=== PATIENT | male | born 1980 | race Caucasian/White ===

== ENCOUNTER → 2020-05-10 08:49 | Outpatient (BNVA) | payer BC, SELFPAY | PROVIDERS: Family Provider Family Medicine; PCP Nurse Practitioner; Visit Provider Nurse Practitioner Family | DX: I10 Essential (primary) hypertension (principal) | CPT/HCPCS: 80053; 80061; 84443; 85025 ==

== ENCOUNTER → 2023-02-21 09:17 | Outpatient (BNVA) | payer BC, SELFPAY | PROVIDERS: Family Provider Family Medicine; PCP Nurse Practitioner; Visit Provider Nurse Practitioner Family | DX: I10 Essential (primary) hypertension (principal); Z12.5 Encounter for screening for malignant neoplasm of prostate | CPT/HCPCS: 80053; 80061; 85025; G0103 ==

== ENCOUNTER 2023-07-09 05:39 | Day surgery (SDC) | payer BC, SELFPAY ==
[2023-07-09 06:07] VITALS: BP 125/89; PULSE 79; RESP 18; TEMP 36.6; O2SAT 99
--- NOTE | 2023-07-09 06:16 | ANES.PREANE2 ---
Pre-Anesthetic Assessment Height/Weight: Height 1.85 m Weight 131.542 kg Temp Pulse Resp BP Pulse Ox O2 Del Method 97.9 F 79 18 125/89 99 Room Air 07/09/23 06:07 07/09/23 06:07 07/09/23 06:07 07/09/23 06:07 07/09/23 06:07 07/09/23 06:07 Preop Diagnosis: Screening Operation Date: 07/09/23 07:00 Proposed Procedures p Colonoscopy 48336,Z12.11(Not Applicable) - Joseph Bass DO Familial anesthetic complications: none Was Beta Gaby taken within 24 hours: N/A Was Clonidine taken within 24 hours: N/A Last intake: Intake Last Liquid Date 07/08/23 Last Liquid Time 22:00 Last Solid Date 07/07/23 Last Solid Time 17:00 Social Alcohol (Social) and No tobacco Exam alert, oriented x 3, clear to auscultation bilaterally and regular rate & rhythm Airway Submandibular: within normal limits Cervical ROM: within normal limits Mallampati: Class II Dentition: full History/ROS No significant history except as noted and No significant complaints Pulmonary Sleep Apnea CV/HEM Hypertension None reported Hepatic None reported GI None reported Metabolic Morbid Ob[place] [facility] [place] Osteoarthritis/DJD Neuropsych None reported Anesthetic Plan ASA status: 1 Anesthesia: Anesthesia Evaluation, General and MAC Medications/Allergies Home Medications Medication Instructions Recorded Confirmed Last Taken Type lisinopril 20 mg tablet 20 mg PO DAILY 90 days #90 tabs 02/21/23 07/04/23 07/08/23 Rx Allergies Allergy/AdvReac Type Severity Reaction Status Date / Time No Known Allergies Allergy Unverified 05/08/23 09:45 [facility] Anesthesia Surgical History History of carpal tunnel surgery Social History Smoking and tobacco status: former smoker Second hand smoke exposure: No Smoking risk assessment/counseling performed?: No Alcohol intake: never Desire information about alcohol rehabilitation?: No Counseling given: No Substance/Drug Use: never Desire information about substance/drug rehabilitation?: No Counseling given: No Adopted: No Caregiver/support person: No Lives independently: Yes Household members: spouse Housing: House Marital status: Number of children: 3 Highest education level completed: Some College, No Degree service: No Current occupational status: employed Data Anesthesia Cardiac Studies: No Data to Display
[2023-07-09] MEDS: sodium chloride 0.9% 1,000 ML 30 ML IV (06:19)
--- NOTE | 2023-07-09 06:56 | PM.HP ---
Providers/Chief Complaint Primary Care Provider: PEDRO Steve Chief Complaint: Z12.11 History of Present Illness Toi Harley is a 43 year old male here for his first screening colonoscopy. His grandmother had colon cancer. He denies any abdominal pain, nausea, emesis, diarrhea, constipation, hematochezia and/or melena Medications/Allergies Home Medications Medication Instructions Recorded Confirmed Last Taken Type lisinopril 20 mg tablet 20 mg PO DAILY 90 days #90 tabs 02/21/23 07/04/23 07/08/23 Rx Allergies Allergy/AdvReac Type Severity Reaction Status Date / Time No Known Allergies Allergy Unverified 05/08/23 09:45 PFSH Acute PFSH: Surgical History History of carpal tunnel surgery Social History Smoking and tobacco status: former smoker Second hand smoke exposure: No Smoking risk assessment/counseling performed?: No Alcohol intake: never Desire information about alcohol rehabilitation?: No Counseling given: No Substance/Drug Use: never Desire information about substance/drug rehabilitation?: No Counseling given: No Adopted: No Caregiver/support person: No Lives independently: Yes Household members: spouse Housing: House Marital status: Number of children: 3 Highest education level completed: Some College, No Degree service: No Current occupational status: employed Vitals/I&O/Wt Last Vital Signs Temp 97.9 F 07/09/23 06:07 Pulse 79 07/09/23 06:07 Resp 18 07/09/23 06:07 BP 125/89 07/09/23 06:07 Pulse Ox 99 07/09/23 06:07 O2 Del Method Room Air 07/09/23 06:07 A&P Assessment and plan (1) Colon cancer screening: Plan Screening colonoscopy The risks and benefits of the procedure, including bleeding, infection, intestinal perforation requiring surgery, missed lesion were explained to the patient. The patient is understanding of the risks and wishes to proceed. Attestations Medical Necessity Statement*: Home Coding Level of Care Code Acute Code for Chg Fwd Diagnoses Colon cancer screening Z12.11
[2023-07-09 07:20] VITALS: BP 111/81; PULSE 83; RESP 16; TEMP 36.3; O2SAT 95
[2023-07-09 07:32] VITALS: BP 123/83; PULSE 68; RESP 16; O2SAT 100
[2023-07-09 07:46] VITALS: BP 127/88; PULSE 69; RESP 16; O2SAT 96
--- NOTE | 2023-07-09 07:50 | ANE.PACU2 ---
Inpatient post-anesthesia follow up: Airway intact: Yes Vital signs: Temperature 97.3 F Pulse Rate 69 Respiratory Rate 16 Blood Pressure 127/88 Pulse Oximetry 96 Oxygen Delivery Me thod Room Air Oxygen Flow Rate 4 Fraction of Inspir ed Oxygen Hydration adequate: Yes Nausea and vomiting: No Pain level: 1 Mental status: Baseline
== END 2023-07-09 07:58 | disposition home or self-care (01) ==
PROVIDERS: PCP Nurse Practitioner; Visit Provider Surgery
PROC: 0DJD8ZZ Inspection of Lower Intestinal Tract, Via Natural or Artificial Opening Endoscopic (ICD-10-PCS; CPT 45378; principal; 2023-07-09 07:00)
DX: Z12.11 Encounter for screening for malignant neoplasm of colon (principal); Z80.0 Family history of malignant neoplasm of digestive organs; K63.5 Polyp of colon; K57.30 Diverticulosis of large intestine without perforation or abscess without bleeding; G47.30 Sleep apnea, unspecified; I10 Essential (primary) hypertension; E66.01 Morbid (severe) obesity due to excess calories; Z68.38 Body mass index [BMI] 38.0-38.9, adult; Z87.891 Personal history of nicotine dependence
CPT/HCPCS: 45385; 88305; J2704; J3490; J7030

== ENCOUNTER → 2024-11-11 10:39 | Outpatient (BNVA) | payer BC, SELFPAY | PROVIDERS: PCP Nurse Practitioner; Visit Provider Nurse Practitioner | DX: Z12.5 Encounter for screening for malignant neoplasm of prostate (principal); I10 Essential (primary) hypertension | CPT/HCPCS: 80053; 80061; G0103 ==

== ENCOUNTER → 2025-06-03 08:11 | Outpatient (BNVA) | payer BC, SELFPAY | PROVIDERS: PCP Nurse Practitioner; Visit Provider Nurse Practitioner | DX: I10 Essential (primary) hypertension (principal) | CPT/HCPCS: 80053; 80061; 86705; 86706; 86709; 86803; 87340 ==

== ENCOUNTER 2025-06-10 07:34 | Outpatient (CLI) | payer BC, SELFPAY ==
--- NOTE | 2025-06-10 07:45 | US_ITS ---
WS: [id number] ABDOMINAL ULTRASOUND LIMITED REASON FOR VISIT: R74.01 - Elevation of levels of liver transaminase levels TECHNIQUE: Grayscale and Doppler ultrasound examination of the abdomen. FINDINGS: Pancreas: Limited visualization with no mass, ductal dilatation, or calcification. Abdominal aorta and IVC: Normal Liver: Liver measures 17.6 cm in length. Moderately inhomogeneously echogenic. No focal lesion. Normal portal venous blood flow. Gallbladder: Gallbladder wall thickness measures 0.2 mm. Moderately distended with normal wall thickness and no calculi. Normal common bile duct. Right kidney: Right kidney measures 12.3 cm x 6.1 cm x 7.4 cm. Right kidney cortex measures 1.8 cm. No mass, calculus, or hydronephrosis. Normal blood flow. No ascites. US/US liver [id number] IMPRESSION: Hepatomegaly and increased echogenicity of the liver parenchyma. These findings are most commonly associated with fatty infiltration/steatohepatitis in the fa ce of elevated liver enzymes. Other forms of hepatitis may also present with th mehnaz findings.
== END 2025-06-10 07:35 | disposition home or self-care (01) ==
LOC: RAD 07:36
PROVIDERS: PCP Nurse Practitioner; Visit Provider Nurse Practitioner
DX: R74.01 Elevation of levels of liver transaminase levels (principal); R16.0 Hepatomegaly, not elsewhere classified
CPT/HCPCS: 76705